=== PATIENT | male | born 2000 | race Hispanic/Latino ===

== ENCOUNTER 2023-06-29 05:53 | Day surgery (SDC) | payer OTHER ==
[2023-06-27 09:35] LABS: BASOPHILS # (AUTO) 0.07 K/uL (0.00-0.20); EOSINOPHILS # (AUTO) 0.11 K/uL (0.00-0.70); EOSINOPHILS % (AUTO) 1.6 % (0.0-8.0); HEMATOCRIT 46.5 % (42-54); IMMATURE GRANULOCYTE ABSOLUTE 0.05 K/uL (0-1); LYMPHOCYTES # (AUTO) 2.1 K/uL (1.0-4.8); MEAN CORPUSCULAR HEMOGLOBIN 28.3 pg (27.0-33.0); MEAN CORPUSCULAR VOLUME 83.3 fL (79-99); MONOCYTES # (AUTO) 0.5 K/uL (0.1-1.0); MONOCYTES % (AUTO) 6.9 % (3.0-13.0); NEUTROPHILS # (AUTO) 3.9 K/uL (1.8-7.7); NEUTROPHILS % (AUTO) 58.8 % (40.0-77.0); PLATELET COUNT (AUTO) 170 K/uL (130-400); RED BLOOD CELL COUNT(AUTO) 5.58 MIL/uL (4.50-6.20); RED CELL DISTRIBUTION WIDTH 12.5 % (11.0-15.5); WHITE BLOOD COUNT (AUTO) 6.7 K/uL (4.8-10.8)
[2023-06-27 09:45] LABS: ALBUMIN 4.3 g/dL (3.5-5.0); CREATININE 0.9 mg/dL (0.5-1.5); POTASSIUM 4.3 mmol/L (3.5-5.1)
[2023-06-27 09:48] VITALS: BP 138/88; PULSE 64; RESP 18
[~2023-06-29] VITALS: Ht 180.3 cm; Wt 117.9 kg
[2023-06-29] VITALS (18 sets, daily range): BP systolic 109–122; BP diastolic 63–82; PULSE 70–81; RESP 12–18
[~2023-06-29 05:53] MED LIST: IBUP-2077 PO
[2023-06-29] MEDS ORDERED: LACTATED RINGERS 1000ML 1,000 ML IV ONE (06:42)
[2023-06-29] MEDS ORDERED: CEFAZOLIN SODIUM 2 GM VIAL ONE (06:42)
[2023-06-29] MEDS ORDERED: BUPIVACAINE/PF 0.25% 30ML VIAL IJ ONE ×2 (08:06→10:14)
[2023-06-29] MEDS ORDERED: LIDOCAINE PF 100MG/5ML (2%) SYRINGE 5ML ONE (09:11)
[2023-06-29] MEDS ORDERED: DEXAMETHASONE SOD PHOSPHATE 4 MG/ML 1ML VIAL ONE (09:11)
[2023-06-29] MEDS ORDERED: PROPOFOL 10 MG/ML 20ML VIAL IV ONE (09:11)
[2023-06-29] MEDS ORDERED: FENTANYL CITRATE PF 50 MCG/1 ML 2ML VIAL ONE ×2 (09:12→09:49)
[2023-06-29] MEDS ORDERED: MIDAZOLAM HCL 1 MG/ML 2ML VIAL ONE (09:12)
[2023-06-29] MEDS ORDERED: ONDANSETRON 4MG INJ ONE (09:12)
[2023-06-29] MEDS ORDERED: DEXAMETHASONE SOD PHOSPHATE 10MG/ML 1ML VIAL ONE (09:22)
[2023-06-29] MEDS ORDERED: ACET-2079 PO (11:05)
[2023-06-29] MEDS ORDERED: MEPERIDINE-PF 25 MG/ML SYG ONE (11:45)
== END 2023-06-29 12:35 | disposition home or self-care (01) ==
LOC: DAH 05:53
PROVIDERS: ATTEND Student in an Organized Health Care Education/Training Program
DX: M23.362 Other meniscus derangements, other lateral meniscus, left knee (principal); M22.42 Chondromalacia patellae, left knee; E66.9 Obesity, unspecified; Z79.899 Other long term (current) drug therapy; Z68.35 Body mass index [BMI] 35.0-35.9, adult
CPT/HCPCS: 82040; 80048; 85025; 84134; 86140; 36415; 29881; J1100 ×2; A4663; A4649 ×3; J7120; J3010 ×2; J3490 ×2; J2001; J2250; J2704; J2405; J2175; J0690; A6223; A4930; A5120; A4215; A4223; A4221; A6450; A4222